=== PATIENT | female | born 1965 | race Caucasian/White ===

== ENCOUNTER 2022-12-05 08:30 | Emergency (ER) | payer MEDICAID, SELFPAY ==
[2022-12-05 08:31] VITALS: BP 129/88; PULSE 89; RESP 22; TEMP 35.9; O2SAT 100
--- NOTE | 2022-12-05 08:41 | CT_ITS ---
STUDY: CT ABDOMEN AND PELVIS WITH CONTRAST REASON FOR EXAM: Female, 57 years old. ABD PAIN X 1 MONTH, N/V, INCREASED WBC RADIATION DOSAGE (If Supplied By Facility): CTDIvol = ( 13.19 ) mGy, DLP = ( 681.47 ) mGycm TECHNIQUE: Transaxial images were obtained from the dome of the diaphragm to the symphysis pubis without oral contrast. ml of 100mL Isovue-370 contrast was administered. Sagittal and coronal images were reconstructed. Individualized dose optimization techniques were used for this CT. COMPARISON: None. FINDINGS: The visualized lung bases are unremarkable. The visualized portions of the heart are within normal limits. Normal liver. A few tiny cysts are present in the liver of no clinical significance. There are surgical clips in the gallbladder fossa consistent with a prior cholecystectomy. Normal spleen. Normal pancreas. Normal bilateral adrenal glands. There is mild cortical atrophy of the right kidney, consistent with chronic medical renal disease. A small cyst is present in the anterior aspect and superior pole of the right kidney. A 7.1 mm calyceal stone is present in the lower pole of the left kidney. A 2.4 mm calyceal stone is directly adjacent to the largest stone also in the lower pole of the left kidney. No left hydronephrosis or hydroureter is present. Normal visualized stomach. Normal small intestine. Normal colon. There is non-visualization of the appendix. There is diffuse atherosclerotic calcification of the abdominal aorta, without a demonstrated aneurysm. Normal inferior vena cava. Normal retroperitoneum. Normal urinary bladder. There is absence of the uterus consistent with a prior hysterectomy. Normal abdominal wall. There are diffuse degenerative changes of the visualized lumbar spine. CT/Abdomen/Pelvis W IV Cont ONLY IMPRESSION: Nonobstructing left kidney stones A 7.1 mm calyceal stone is present in the lower pole of the left kidney. A 2.4 mm calyceal stone is directly adjacent to the largest stone also in the lower pole of the left kidney. No left hydronephrosis or hydroureter is present. Electronically Signed: Luis Walker MD at 9:59 EDT ,
--- NOTE | 2022-12-05 08:42 | EDS_ITS ---
HPI HPI - GI History of Present Illness Chief Complaint: Abd Pain Narrative Narrative: 57-year-old female presenting with abdominal pain which she had for about a month. She states it feels like it is cramping. She feels like it bloats out sometimes and then comes back to normal. She reports that she is urinating and defecating. She does not have any black or bloody stools. She is vomiting. She states that all the symptoms come in waves and she eventually starts to feel good enough to eat something like soup and then get sick again immediately. Patient states has been to the emergency room twice in the last month and had lab work done which she reports was normal. She has not had any imaging done on her abdomen. Past surgical history of cholecystectomy and ruptured appendectomy. No history of bowel obstruction. She states she has not had a fever. [facility] Medical History Asthma Home Medications ondansetron 4 mg disintegrating tablet 4 mg PO Q8H PRN PRN Nausea #20 tabs 12/05/22 [Rx Last Taken Unknown] sucralfate 100 mg/mL oral suspension (Carafate) 10 ml PO BID PRN epigastric pain #400 mL 12/05/22 [Rx Last Taken Unknown] Allergy/AdvReac Type Severity Reaction Status Date / Time No Known Allergies Allergy Verified 12/05/22 08:31 Social History Smoking Status: Never smoker ROS [facility] ED Constitutional Constitutional ED: Denies chills, fever(s) or sweats Eyes Eyes: Denies blurry vision or change in vision ENT ENT ED: Denies ear pain or sore throat Cardiovascular Cardiovascular: Denies chest pain, palpitations or racing heartbeat Respiratory/Chest Respiratory/Chest: Denies cough, dyspnea or sputum Gastrointestinal Gastrointestinal: Reports abdominal pain, nausea and vomiting; Denies constipation or diarrhea Genitourinary Genitourinary ED: Denies dysuria, hematuria or urinary frequency Musculoskeletal Musculoskeletal: Denies arthralgias, myalgias or neck pain Integumentary Denies abscess, Abrasions or rash Neurologic Neurologic: Denies headache(s), paresthesias or weakness Psychiatric Psychiatric: Denies anxiety, depression, suicidal ideation or suicidal thoughts Endocrine Endocrinology: Denies polydipsia or polyuria EXAM Physical Exam Const Vital Signs: 12/05/22 08:31 Temperature 96.7 F L Temperature Source Temporal Pulse Rate 89 Respiratory Rate 22 H Blood Pressure 129/88 H Blood Pressure Mean 101 Pulse Ox 100 Oxygen Delivery Method Room Air Positive well nourished General Appearance ED: NAD; Negative for pallor HEENT Reports moist mucous membranes Eyes PERRL and EOMs intact bilaterally General Eye ED: Negative for pale conjunctiva Resp normal respiratory effort and clear to auscultation bilaterally Auscultation: Negative for rales, rhonchi or wheezes Cardio regular rate and regular rhythm GI GI Narrative: Diffusely tender. Abdomen not distended. Auscultation: normoactive bowel sounds Palpation: soft Back/Spine no CVA tenderness Neuro CN's II-XII intact bilaterally Sensorium / Orientation: alert Motor Exam: strength 5/5 throughout Psych mental status grossly normal Skin no wounds General Skin Exam: Negative for jaundice or pallor MDM MDM MDM Narrative Medical decision making narrative: 57-year-old female with abdominal pain on and off for a month as well as nausea and vomiting. Differential includes gastritis, peptic ulcer disease, colitis, pancreatitis, diverticulitis, bowel obstruction, electrolyte abnormalities, dehydration, anemia, GI bleed, UTI, pyelonephritis. CBC to assess white blood cell count, hemoglobin. CMP to assess liver function, renal function, electrolytes. Lipase to assess for pancreatitis. Urinalysis to assess for UTI. Patient given a liter normal saline. Given 4 mg of morphine and 4 mg of Zofran. Will obtain CT of the ab pelvis IV contrast. CBC shows a white blood cell count 11.3. Hemoglobin macular stable. Platelets are normal. Renal function electrolytes within normal limits with exception of mildly elevated calcium at 10.5. Liver enzymes are normal. Lipase is normal. Urinalysis is normal. CT of the abdomen pelvis with IV contrast does not show any acute intra-abdominal pathology. He does note that there are 2 large stones within the kidney but they are nonobstructing. I do not believe this is the source of the patient's abdominal pain. At this point I feel she is stable for discharge. She request that I refill some dissolvable Zofran for her. And I will also give her some Carafate. Lab Data Attestation: I reviewed the patient's lab results. Labs: Laboratory Results - last 24 hr 12/05/22 12/05/22 12/05/22 08:55 08:55 10:10 WBC 11.3 H RBC 4.79 Hgb 14.8 Hct 44.8 MCV 93.5 MCH 30.9 MCHC 33.0 RDW Std Deviation 44.6 H RDW Coeff of Ilya 13.0 Plt Count 326 MPV 10.1 Immature Gran % (Auto) 0.400 Neut % (Auto) 72.2 H Lymph % (Auto) 12.9 L [place] % (Auto) 10.6 H Eos % (Auto) 3.1 Baso % (Auto) 0.8 Absolute Neuts (auto) 8.1 H Absolute Lymphs (auto) 1.45 Nucleated RBC % 0 Sodium 140 Potassium 3.8 Chloride 108 H Carbon Dioxide 27.0 Anion Gap 5 BUN 16 Creatinine 0.89 Estim Creat Clear Calc 61.24 Est GFR (MDRD) Af Amer 83 Est GFR (MDRD) Non-Af 69 BUN/Creatinine Ratio 17.9 Glucose 109 H Calcium 10.5 H Total Bilirubin 0.50 AST 20 ALT 23 Alkaline Phosphatase 107 Total Protein 6.8 Albumin 3.4 Globulin 3.4 Albumin/Globulin Ratio 1.0 Lipase 38 Urine Color Yellow Urine Clarity Clear Urine pH 8.0 Ur Specific [place] 1.015 Urine Protein Negative Urine Glucose (UA) Normal Urine Ketones 15 H Urine Occult Blood Negative Urine Nitrite Negative Urine Bilirubin Negative Urine Urobilinogen Normal Ur Leukocyte Esterase Negative Urine RBC 0-5 SEEN Urine WBC 0-5 SEEN Ur Squamous Epith Cells 0 SEEN Urine Bacteria 0 SEEN Urine Mucus 0 SEEN Radiography Diagnostic Testing: Clinical Impression(s) from Imaging Studies Abdomen/Pelvis CT 12/05/22 08:41 IMPRESSION: Nonobstructing left kidney stones A 7.1 mm calyceal stone is present in the lower pole of the left kidney. A 2.4 mm calyceal stone is directly adjacent to the largest stone also in the lower pole of the left kidney. No left hydronephrosis or hydroureter is present. Electronically Signed: Luis Walker MD at 9:59 EDT Reading Location ID and State: [facility] / [place] , Service support , Discharge Plan Triage Chief Complaint: Abd Pain Other Complaint: Nausea/Vomiting ED Provider: Giovanni Westbrook Dx/Rx/DC Orders Instructions: ED Abdominal Pain Unkn Cause Fem Prescriptions: New ondansetron 4 mg tablet,disintegrating 4 mg PO Q8H PRN PRN (Reason: Nausea) Qty: 20 0RF sucralfate [Carafate] 100 mg/mL suspension 10 ml PO BID PRN (Reason: epigastric pain) Qty: 400 0RF Primary Care Provider: Abdulaziz Cortes Referrals: Abdulaziz Cortes MD [Primary Care Provider] - Disposition Disposition: Home, Self Care
[2022-12-05] MEDS: Ondansetron 4 MG/2 ML Vial IV (08:54)
[2022-12-05] MEDS: 0.9% Normal Saline 1,000 ML 1000 ML IV (08:54)
[2022-12-05] MEDS: Morphine 4 MG/ML Syringe IV (08:55)
[2022-12-05 08:57] VITALS: BMI 27.1
[2022-12-05 09:04] LABS: Absolute Lymphocyte Count 1.45 X10^3/uL (0.83-4.51); Absolute Neutrophil Count 8.1 X10^3/uL (2.0-7.7); Basophil# 0.09 X10^3/uL; Basophil% 0.8 % (0-1); Eosinophil# 0.35 X10^3/uL; Eosinophils% 3.1 % (0-5); Hematocrit 44.8 % (37-47); Hemoglobin 14.8 g/dL (12.0-15.0); Lymphocyte # 1.45 X10^3/ul (0.83-4.51); Lymphocyte % 12.9 % (19-41); Mean Corpuscular Hgb 30.9 pg (27.0-32.0); Mean Corpuscular Volume 93.5 fL (81-99); Mean Platelet Vol. 10.1 fl (6.2-12.0); Monocyte# 1.19 X10^3/uL; Monocyte% 10.6 % (0-10); NRBC Flagged by Analyzer 0 % (0-5); Neutrophil # 8.13 X10^3/uL (2.7-7.7); Neutrophil % 72.2 % (47-70); Platelet Count 326 K/mm3 (150-450); RBC Distribution Width SD 44.6 fl (35.1-43.9); Red Blood Count 4.79 M/mm3 (4.2-5.4); White Blood Count 11.3 K/mm3 (4.4-11.0)
[2022-12-05 09:18] LABS: AST(SGOT) 20 U/L (15-37); Alanine Aminotransfer ALT/SGPT 23 U/L (13-56); Albumin, Serum 3.4 g/dL (3.2-5.0); Alkaline Phosphatase 107 U/L (45-117); Anion Gap 5 (5-15); BUN 16 mg/dL (7-18); BUN/Creat Ratio 17.9 RATIO (10-20); Calcium,Total 10.5 mg/dL (8.5-10.1); Chloride 108 mmol/L (98-107); Creatinine, Serum 0.89 mg/dL (0.55-1.02); EST Glomerular Filtration Rate 69 mL/min (>60); Est Glom Filt Rate - Afr Amer 83 mL/min (>60); Estimated Creatinine Clearance 61.24 ml/min; Globulin 3.4 g/dL (2.2-4.2); Glucose 109 mg/dL (74-106); Lipase 38 U/L (13-75); Potassium 3.8 mmol/L (3.5-5.1); Protein, Total 6.8 g/dL (6.4-8.2); Sodium Level 140 mmol/L (136-145)
[2022-12-05 10:22] LABS: Bacteria 0 SEEN /hpf (None Seen); Mucous, Urine 0 SEEN /hpf (<or=2+); Squamous Epithelial Cells - UA 0 SEEN /hpf (5-10)
[2022-12-05 10:27] LABS: Color, Urine Yellow (Yellow); Glucose, Dipstick Normal (Normal); Ketone-Dipstick 15 mg/dl (Negative); Leukocyte Esterase-Dipstick Negative /ul (Negative); Nitrite-Dipstick Negative (Negative); Occult Blood-Urine Negative /ul (Negative); Protein-Dipstick Negative (Negative); Specific Gravity, Urine 1.015 (1.002-1.030); Urine Bilirubin Dipstick Negative (Negative); Urine Clarity Clear (Clear); Urine Urobilinogen Normal (Normal)
[2022-12-05 10:35] LABS: Red Blood Cells-Urine 0-5 SEEN /hpf (0-5); White Blood Cells 0-5 SEEN /hpf (0-5)
[2022-12-05 11:14] VITALS: BP 128/76; PULSE 68; RESP 16; O2SAT 98
== END 2022-12-05 11:15 | disposition home or self-care (01) ==
PROVIDERS: Emergency Provider Student in an Organized Health Care Education/Training Program; PCP Family Medicine; Visit Provider Student in an Organized Health Care Education/Training Program
DX: R10.9 Unspecified abdominal pain (principal); R11.2 Nausea with vomiting, unspecified
CPT/HCPCS: 74177; 80053; 81001; 83690; 85025; 96361; 96374; 96375; 99283; J7030; Q9967; A4216; J2405

== ENCOUNTER 2023-12-11 10:14 | Emergency (ER) | payer MEDICARE, SELFPAY ==
[2023-12-11 10:14] VITALS: BP 137/89; PULSE 95; RESP 14; TEMP 36.1; O2SAT 99
--- NOTE | 2023-12-11 11:44 | EX.ED.DYSGE1 ---
HPI History of Present Illness Chief Complaint: Flank Pain Onset/Context/Timing Onset: Days (2) Context: Gradual Onset Timing: Continuous Quality: Sharp Location: Left flank Worsened by: Nothing Relieved by: Nothing Narrative Narrative: Patient presents with left flank pain that has been getting worse over the past 2 days. Patient states it has gradually gotten worse. Patient describes the pain as sharp. Patient states it feels similar to prior kidney stones. Patient states nothing makes it better and nothing makes it worse. Patient denies any fevers or chills. Patient admits to some nausea but denies any vomiting. Patient denies any dysuria, hematuria, or frequency. Patient does admit to some occasional pain in her chest. Patient describes as a heaviness. Patient denies any shortness of breath. [facility] Medical History (Updated 12/11/23 @ 15:[address] Rajiv Ruano, DO) Sciatica Kidney stone COPD (chronic obstructive pulmonary disease) Asthma Home Medications ?Medication ?Instructions ?Recorded ?Last Taken ?Type ondansetron 4 mg disintegrating 4 mg PO Q8H PRN PRN Nausea #20 tabs 12/05/22 Unknown Rx tablet albuterol sulfate 2.5 mg/3 mL 2.5 mg inhalation Q4H PRN 12/11/23 Unknown History (0.083 %) solution for nebulization shortness of breath or wheezing albuterol sulfate 90 mcg/actuation 2 puff inhalation Q4H PRN PRN 12/11/23 Unknown History aerosol inhaler (Ventolin HFA) shortness of breath or wheezing bupropion HCl 300 mg 24 hr tablet, 300 mg PO DAILY 12/11/23 Unknown History extended release diclofenac sodium 1 % topical gel 2 g topical Q6H 12/11/23 Unknown History dicyclomine 20 mg tablet 20 mg PO TID 12/11/23 Unknown History docusate sodium 100 mg capsule 100 mg PO BID 12/11/23 Unknown History duloxetine 30 mg capsule,delayed 30 mg PO DAILY 12/11/23 Unknown History release hydroxychloroquine 200 mg tablet 300 mg PO DAILY 12/11/23 Unknown History ipratropium 0.5 mg-albuterol 3 mg 3 ml inhalation Q4H PRN shortness 12/11/23 Unknown History (2.5 mg base)/3 mL nebulization of breath or wheezing soln lisinopril 10 mg tablet 10 mg PO DAILY 12/11/23 Unknown History loratadine 10 mg tablet 10 mg PO DAILY 12/11/23 Unknown History (Allermichaelaar) mometasone-formoterol HFA 200 2 puff inhalation BID 12/11/23 Unknown History mcg-5 mcg/actuation aerosol inhaler (Dulera) montelukast 10 mg tablet 10 mg PO QHS 12/11/23 Unknown History naproxen 500 mg tablet 500 mg PO BID PRN pain 12/11/23 Unknown History omeprazole 40 mg capsule,delayed 40 mg PO DAILY 12/11/23 Unknown History release oxycodone 5 mg tablet 5 mg PO Q6H PRN pain 12/11/23 Unknown History oxycodone-acetaminophen 5 mg-325 0.5 tab PO Q6H PRN pain 12/11/23 Unknown History mg tablet (Endocet) pregabalin 150 mg capsule 150 mg PO BID 12/11/23 Unknown History promethazine 25 mg tablet 25 mg PO Q8H PRN nausea and 12/11/23 Unknown History vomiting propylene glycol 0.6 % eye drops 1 drp EACH EYE Q6H PRN dry eye(s) 12/11/23 Unknown History (Lubricant Eye (propylene glycol)) Allergy/AdvReac Type Severity Reaction Status Date / Time No Known Allergies Allergy Verified 12/05/22 08:31 Surgical History (Updated 12/11/23 @ 12:[address] Rajiv Ruano DO) Hx of total knee replacement Hx of cholecystectomy H/O: hysterectomy History of appendectomy Social History Smoking Status: Never smoker ROS ROS ED Constitutional Constitutional ED: Denies chills or fever(s) Eyes Eyes: Denies blurry vision or change in vision ENT ENT ED: Denies rhinorrhea or sore throat Cardiovascular Cardiovascular: Reports chest pain; Denies palpitations Respiratory/Chest Respiratory/Chest: Denies cough or dyspnea Gastrointestinal Gastrointestinal: Reports nausea; Denies vomiting Genitourinary Genitourinary ED: Denies dysuria or hematuria Musculoskeletal Musculoskeletal: Reports back pain; Denies neck pain Integumentary Denies abscess or rash Neurologic Neurologic: Reports headache(s); Denies weakness Allergic/Immunologic Allergic/Immunologic ED: Denies mouth swelling or urticaria EXAM Physical Exam Const Vital Signs: 12/11/23 10:14 12/11/23 12:14 12/11/23 14:00 Temperature 97 F L Temperature Source Temporal Pulse Rate 95 85 90 Respiratory Rate 14 16 16 Blood Pressure 137/89 H 129/92 H 141/80 H Blood Pressure Mean 105 104 100 Pulse Ox 99 95 95 Oxygen Delivery Method Room Air Room Air Room Air Positive well nourished and well developed General Appearance ED: well developed and NAD HEENT Reports moist mucous membranes Neck supple and no JVD Resp normal respiratory effort and clear to auscultation bilaterally Cardio regular rate and regular rhythm GI non-distended Palpation: soft and tender LLQ and LUQ; Negative for guarding or rebound tenderness present Back/Spine General Back: CVA tenderness left Neuro oriented x3, CN's II-XII intact bilaterally and no sensory deficits noted Sensorium / Orientation: alert Motor Exam: strength 5/5 throughout Psych mental status grossly normal MDM MDM MDM Narrative Medical decision making narrative: Differential diagnosis includes ureteral calculus, pyelonephritis, urinary tract infection, gastroenteritis, diverticulitis, peptic ulcer disease, and viral illness. CT scan of the abdomen and pelvis will be obtained to assess for ureteral calculus and diverticulitis. Chest x-ray will be obtained to assess for pneumonia and pneumothorax. CBC will be obtained to assess for leukocytosis and anemia. Basic metabolic profile will be obtained to assess for electrolyte abnormality and renal function. Urinalysis will be obtained to assess for urinary tract infection and hematuria. High-sensitivity troponin will be obtained to assess for cardiac ischemia. Lab Data Attestation: I reviewed the patient's lab results. Lab results narrative: CBC was reviewed and was within normal limits. Basic metabolic profile was reviewed and was essentially within normal limits. Initial high-sensitivity troponin was reviewed and was normal at 22. Urinalysis was reviewed. There are positive nitrates and 1+ bacteria. Leukocyte esterase was only 25 and there were 0-5 white blood cells and 0 epithelial cells. 2-hour repeat high-sensitivity troponin was reviewed and was normal at 31. Labs: Laboratory Results - last 24 hr 12/11/23 12/11/23 12/11/23 10:30 12:06 14:00 WBC 8.6 RBC 4.08 L Hgb 12.5 Hct 39.0 MCV 95.6 MCH 30.6 MCHC 32.1 RDW Std Deviation 44.5 H RDW Coeff of Ilya 12.8 Plt Count 240 MPV 11.0 Immature Gran % (Auto) 0.700 Neut % (Auto) 67.1 Lymph % (Auto) 19.7 [place] % (Auto) 10.8 H Eos % (Auto) 1.4 Baso % (Auto) 0.3 Absolute Neuts (auto) 5.8 Absolute Lymphs (auto) 1.70 Nucleated RBC % 0 Sodium 138 Potassium 3.8 Chloride 107 Carbon Dioxide 26.0 Anion Gap 5 BUN 21 H Creatinine 1.04 H Est GFR (MDRD) Af Amer 69 Est GFR (MDRD) Non-Af 57 L BUN/Creatinine Ratio 20.2 H Glucose 70 L Calcium 9.5 Troponin I High Sens 22 31 Urine Color Yellow Urine Clarity Clear Urine pH 6.0 Ur Specific [place] 1.010 Urine Protein Negative Urine Glucose (UA) Normal Urine Ketones 50 H Urine Occult Blood Negative Urine Nitrite Positive H Urine Bilirubin Negative Urine Urobilinogen Normal Ur Leukocyte Esterase 25 H Urine RBC 0 SEEN Urine WBC 0-5 SEEN Ur Squamous Epith Cells 0 SEEN Urine Bacteria 1+ Urine Mucus 0 SEEN Radiography Chest X-Ray - ED: 2 View, Read by ED Physician, Read by Radiologist and No Acute Disease Diagnostic Testing: Clinical Impression(s) from Imaging Studies Abdomen/Pelvis CT 12/11/23 11:45 IMPRESSION: Nonobstructive 6.1 mm calculus in the lower pole calyx of the left kidney. Fullness of the right renal pelvis. No evidence of obstructive uropathy at this time. Electronically Signed: Ronaldo Zamora MD at 12:59 EDT , Chest X-Ray 12/11/23 12:15 IMPRESSION: No acute abnormality is seen. Electronically Signed: Ronaldo Zamora MD at 12:27 EDT , PA and lateral chest x-ray was obtained. There are 2 views. On my independent interpretation, lung yancey are clear. There is normal cardiac silhouette. Bony thorax is normal. There is no acute process noted. Radiologist also interpreted the x-ray and agrees. CT scan of the abdomen pelvis was obtained. There is a nonobstructive 6.1 mm calculus in the lower pole of the left kidney. There is fullness of the right renal pelvis. There is no obstructive uropathy noted. There is no bowel obstruction or perforation noted. There is no free air or free fluid. This was interpreted by the radiologist and was also independently reviewed by myself. EKG Initial EKG: Attestation: I personally reviewed and interpreted this EKG as follows: Interpretation: Sinus Rhythm (81) and No Acute Injury Pattern Comments: EKG was obtained. On my independent interpretation, it showed a normal sinus rhythm with a rate of 81. RI interval, QRS interval, and QTc intervals were all normal. [place] was normal. There are no acute ST or T wave changes. Prior EKG tracings: not available for review Prior: No Prior Follow-up EKG: Attestation: I personally reviewed and interpreted this EKG as follows: Interpretation: Sinus Rhythm (81) and No Acute Injury Pattern Comments: EKG was obtained. On my independent interpretation, it showed a normal sinus rhythm with a rate of 81. RI interval, QRS interval, and QTc intervals were all normal. [place] was normal. There are no acute ST or T wave changes. Prior EKG tracings: available for review Prior: Unchanged Treatment and Re-Evaluation :: Patient was given IV fluids, morphine, and Zofran. Patient had minimal relief with this. Patient was given a dose of Dilaudid. Patient is feeling better on reevaluation. Patient was advised of her findings. Patient was advised that this could be gastric ulcer pain. Patient was instructed to follow-up with her primary care physician in 5 to 7 days. Patient was instructed to continue her medications as previously prescribed. Patient and spouse understood and were agreeable with the plan. All questions were answered. Discharge Plan Triage Chief Complaint: Flank Pain ED Provider: Rjaiv Ruano Dx/Rx/DC Orders Clinical Impression: Abdominal pain, Acute left flank pain Instructions: ED Abdominal Pain Unkn Cause Fem, ED Flank Pain, Uncertain Cause Prescriptions: No Action ondansetron 4 mg tablet,disintegrating 4 mg PO Q8H PRN PRN (Reason: Nausea) Qty: 20 0RF albuterol sulfate [Ventolin HFA] 90 mcg/actuation HFA aerosol inhaler 2 puff INHALATION Q4H PRN PRN (Reason: shortness of breath or wheezing) pregabalin 150 mg capsule 150 mg PO BID oxycodone-acetaminophen [Endocet] 5-325 mg tablet 0.5 tab PO Q6H PRN (Reason: pain) promethazine 25 mg tablet 25 mg PO Q8H PRN (Reason: nausea and vomiting) Lubricant Eye (propyl glycol) 0.6 % drops 1 drp EACH EYE Q6H PRN (Reason: dry eye(s)) albuterol sulfate 2.5 mg /3 mL (0.083 %) solution for nebulization 2.5 mg inhalation Q4H PRN (Reason: shortness of breath or wheezing) bupropion HCl 300 mg tablet extended release 24 hr 300 mg PO DAILY diclofenac sodium 1 % gel 2 g topical Q6H dicyclomine 20 mg tablet 20 mg PO TID docusate sodium 100 mg capsule 100 mg PO BID hydroxychloroquine 200 mg tablet 300 mg PO DAILY duloxetine 30 mg capsule,delayed release(DR/EC) 30 mg PO DAILY ipratropium-albuterol 0.5 mg-3 mg(2.5 mg base)/3 mL solution for nebulization 3 ml inhalation Q4H PRN (Reason: shortness of breath or wheezing) lisinopril 10 mg tablet 10 mg PO DAILY loratadine [Allerclear] 10 mg tablet 10 mg PO DAILY Dulera 200-5 mcg/actuation HFA aerosol inhaler 2 puff inhalation BID montelukast 10 mg tablet 10 mg PO QHS naproxen 500 mg tablet 500 mg PO BID PRN (Reason: pain) omeprazole 40 mg capsule,delayed release(DR/EC) 40 mg PO DAILY oxycodone 5 mg tablet 5 mg PO Q6H PRN (Reason: pain) Primary Care Provider: Abdulaziz Cortes Referrals: Abdulaziz Cortes MD [Primary Care Provider] - 3-5 Days Print Language: Tuvaluan Disposition Disposition: Home, Self Care
--- NOTE | 2023-12-11 11:45 | CT_ITS ---
STUDY: CT ABDOMEN AND PELVIS WITHOUT CONTRAST REASON FOR EXAM: Female, 58 years old. Left flank pain RADIATION DOSAGE (If Supplied By Facility): CTDIvol = ( 7.19 ) mGy, DLP = ( 352.21 ) mGycm TECHNIQUE: Transaxial images were obtained from the dome of the diaphragm to the symphysis pubis without oral contrast, and without intravenous contrast. Sagittal and coronal images were reconstructed. Individualized dose optimization techniques were used for this CT. COMPARISON: Comparison is made with prior study dated December 05, 2022. FINDINGS: Minimal increased linear markings at the lung bases suggestive of atelectasis. The visualized portions of the heart are within normal limits. Small cysts are seen in the liver. These are unchanged. There are surgical clips in the gallbladder fossa consistent with a prior cholecystectomy. Normal spleen. Normal pancreas. Normal bilateral adrenal glands. Fullness of the right renal pelvis. There is a 6.1 mm nonobstructive calculus in the lower pole calyx of the left kidney. Normal visualized stomach. Normal small intestine. Normal colon. There is non-visualization of the appendix. There is scattered atherosclerotic calcification of the abdominal aorta, without a demonstrated aneurysm. Normal inferior vena cava. Normal retroperitoneum. Normal urinary bladder. There is absence of the uterus consistent with a prior hysterectomy. Normal abdominal wall. There are diffuse degenerative changes of the visualized lumbar spine. CT/Abdomen/Pelvis without Cont IMPRESSION: Nonobstructive 6.1 mm calculus in the lower pole calyx of the left kidney. Fullness of the right renal pelvis. No evidence of obstructive uropathy at this time. Electronically Signed: Ronaldo Zamora MD at 12:59 EDT ,
--- NOTE | 2023-12-11 11:45 | EKG12_ITS ---
Test Reason : REPEAT Blood Pressure : / mmHG Vent. Rate : 081 BPM Atrial Rate : 081 BPM P-R Int : 178 ms QRS Dur : 080 ms QT Int : 394 ms P-R-T Axes : 052 055 079 degrees QTc Int : 457 ms Normal sinus rhythm Normal ECG Confirmed by Waqas Willingham ([id number]), research editor TEGAN STEPHENS ([id number]) on 12/12/2023 9:19:05 AM Referred By: Confirmed By:Waqas Willingham
--- NOTE | 2023-12-11 11:55 | EKG12_ITS ---
Test Reason : Blood Pressure : / mmHG Vent. Rate : 081 BPM Atrial Rate : 081 BPM P-R Int : 182 ms QRS Dur : 066 ms QT Int : 368 ms P-R-T Axes : 029 034 078 degrees QTc Int : 427 ms Normal sinus rhythm Normal ECG Confirmed by Waqas Willingham ([id number]), editor news CLAIR THOMAS ([id number]) on 12/12/2023 11:27:58 AM Referred By: Confirmed By:Waqas Willingham
[2023-12-11] MEDS: Ondansetron 4 MG/2 ML Vial IV (12:03)
[2023-12-11] MEDS: 0.9% Normal Saline (1000mL) 1,000 ML 1000 ML IV (12:03)
[2023-12-11] MEDS: Morphine 4 MG/ML Syringe IV (12:03)
[2023-12-11 12:05] LABS: Absolute Neutrophil Count 5.8 X10^3/uL (2.0-7.7); Basophil# 0.03 X10^3/uL; Basophil% 0.3 % (0-1); Eosinophil# 0.12 X10^3/uL; Eosinophils% 1.4 % (0-5); Hemoglobin 12.5 g/dL (12.0-15.0); Lymphocyte % 19.7 % (19-41); Mean Corp Hgb Conc 32.1 g/dL (32-36); Mean Corpuscular Hgb 30.6 pg (27.0-32.0); Mean Corpuscular Volume 95.6 fL (81-99); Monocyte# 0.93 X10^3/uL; Monocyte% 10.8 % (0-10); NRBC Flagged by Analyzer 0 % (0-5); Neutrophil # 5.79 X10^3/uL (2.7-7.7); Neutrophil % 67.1 % (47-70); Platelet Count 240 K/mm3 (150-450); RBC Distribution Width CV 12.8 % (11.6-14.6); RBC Distribution Width SD 44.5 fl (35.1-43.9); Red Blood Count 4.08 M/mm3 (4.2-5.4); White Blood Count 8.6 K/mm3 (4.4-11.0)
[2023-12-11 12:14] VITALS: BP 129/92; PULSE 85; RESP 16; O2SAT 95
[2023-12-11 12:15] LABS: Mucous, Urine 0 SEEN /hpf (<or=2+); Red Blood Cells-Urine 0 SEEN /hpf (0-5); Squamous Epithelial Cells - UA 0 SEEN /hpf (5-10)
--- NOTE | 2023-12-11 12:15 | RAD_ITS ---
STUDY: X-RAY CHEST REASON FOR EXAM: Female, 58 years old. Chest pain TECHNIQUE: PA and lateral views of the chest. COMPARISON: None. FINDINGS: EKG electrodes are seen. The lungs are clear and expanded. There is no demonstrated pleural abnormality. Normal size heart. Calcified bilateral hilar lymph nodes. Normal visualized pulmonary arteries. There is atherosclerotic calcification of the aortic arch with tortuosity. There are diffuse degenerative changes of the visualized thoracic spine. Normal visualized ribs, clavicles, and shoulders. There is no demonstrated abnormality of the visualized soft tissue structures of the upper abdomen. RAD/Chest PA and Lateral IMPRESSION: No acute abnormality is seen. Electronically Signed: Ronaldo Zamora MD at 12:27 EDT ,
[2023-12-11 12:26] LABS: Anion Gap 5 (5-15); BUN 21 mg/dL (7-18); BUN/Creat Ratio 20.2 RATIO (10-20); Calcium,Total 9.5 mg/dL (8.5-10.1); Chloride 107 mmol/L (98-107); Creatinine, Serum 1.04 mg/dL (0.55-1.02); EST Glomerular Filtration Rate 57 mL/min (>60); Est Glom Filt Rate - Afr Amer 69 mL/min (>60); Glucose 70 mg/dL (74-106); Potassium 3.8 mmol/L (3.5-5.1); Sodium Level 138 mmol/L (136-145); Troponin-I HS 22 pg/mL (3.0-54.0)
[2023-12-11 12:39] LABS: Color, Urine Yellow (Yellow); Glucose, Dipstick Normal (Normal); Ketone-Dipstick 50 mg/dl (Negative); Leukocyte Esterase-Dipstick 25 /ul (Negative); Nitrite-Dipstick Positive (Negative); Occult Blood-Urine Negative /ul (Negative); Protein-Dipstick Negative (Negative); Urine Bilirubin Dipstick Negative (Negative); Urine Clarity Clear (Clear); Urine Urobilinogen Normal (Normal)
[2023-12-11] MEDS: HYDROmorphone 1 MG/ML Syringe 0.5 MG IV (12:53)
[2023-12-11 12:54] LABS: Bacteria 1+ /hpf (None Seen); White Blood Cells 0-5 SEEN /hpf (0-5)
[2023-12-11 14:00] VITALS: BP 141/80; PULSE 90; RESP 16; O2SAT 95
[2023-12-11 14:23] LABS: Troponin-I HS 31 pg/mL (3.0-54.0)
[2023-12-11] MEDS: oxyCODONE 5 MG Tablet PO (15:17)
[2023-12-11 15:18] VITALS: BP 129/80; PULSE 64; PULSE 83; RESP 16; RESP 18; TEMP 36.6; TEMP 36.9; O2SAT 98; O2SAT 99
== END 2023-12-11 15:20 | disposition home or self-care (01) ==
PROVIDERS: Emergency Provider Emergency Medicine; PCP Family Medicine; Visit Provider Emergency Medicine
DX: R10.9 Unspecified abdominal pain (principal); J44.9 Chronic obstructive pulmonary disease, unspecified; R11.0 Nausea; Z90.710 Acquired absence of both cervix and uterus; Z90.49 Acquired absence of other specified parts of digestive tract; Z96.659 Presence of unspecified artificial knee joint
CPT/HCPCS: 71046; 74176; 80048; 81001; 84484; 85025; 87086; 87088; 87186; 93005; 96361; 96374; 96375; 99284; J7030; A4216; J2405